=== PATIENT | male | born 1965 | race Caucasian/White ===

== ENCOUNTER 2023-10-18 10:13 | Outpatient (CLI) | payer OTHER, SELFPAY ==
--- NOTE | ~2023-10-18 | MR_ITS ---
MRI of the left shoulder Technique: Axial proton-density fat-sat images, coronal proton density fat-sat and T2 fat-sat images, and sagittal T1-weighted and T2 fat-sat images were acquired. Clinical History: Shoulder lesion, pain Findings: There is mild AC joint degenerative change, with mild bony productive change of the distal clavicle. Coracoclavicular, coracoacromial, and coracohumeral ligaments are intact. Supraspinatus and infraspinatus tendons are intact, without partial or full-thickness tear. There is mild tendinosis. Subscapularis tendon is intact, with mild tendinosis. Tendon of long head of the bic eps is intact. There is advanced degenerative change of the glenohumeral joint, with diffuse high-grade chondral les ion of the glenoid. There is mild remodeling or possibly chronic posttraumatic change of the glenoid, with subchondral cystic change and somewhat altered morphology and is typically seen. There is chond ral malacia the humeral head. There is minimal glenohumeral joint effusion. There is probable extensi ve degenerative labral tearing. No fluid distention of the subacromial/subdeltoid bursa. No muscle atrophy or edema. Inferior glenohu meral ligament is intact. Impression: Advanced glenohumeral joint degenerative change, with remodeling or possibly chronic posterior matter change of the glenoid. 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 No rotator cuff tear evident. Reviewed, dictated and finalized at [facility]. Impression: Advanced glenohumeral joint degenerative change, with remodeling or possibly ch ronic posterior matter change of the glenoid. 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 No rotator cuff tear evident.
== END 2023-10-18 10:14 ==
PROVIDERS: PCP Orthopaedic Surgery; Visit Provider Orthopaedic Surgery
DX: M19.012 Primary osteoarthritis, left shoulder (principal); M75.82 Other shoulder lesions, left shoulder
CPT/HCPCS: 73221